=== PATIENT | male | born 1955 ===

== ENCOUNTER 2018-06-13 12:39 | Outpatient (RCR) | payer OTHER ==
[2018-06-29] MEDS ORDERED: NORVASC 10MG10 MG PO (06:19)
[2018-06-29] MEDS ORDERED: ZOCOR 20MG20 MG PO (06:20)
[2018-06-29] MEDS ORDERED: COREG 25MG25 MG/TAB PO (06:20)
[2018-06-29] MEDS ORDERED: LOPID 600M600 MG/TAB PO (06:21)
[2018-06-29] MEDS ORDERED: PRILOSEC 20MG20 MG PO (06:21)
== END 2018-09-11 | disposition home or self-care (01) ==
LOC: WSOH
DX: M62.08 Separation of muscle (nontraumatic), other site (principal); X50.0XXA Overexertion from strenuous movement or load, initial encounter; Y93.H3 Activity, building and construction; Y92.59 Other trade areas as the place of occurrence of the external cause; Y99.0 Civilian activity done for income or pay; Z87.891 Personal history of nicotine dependence; Z79.899 Other long term (current) drug therapy

== ENCOUNTER 2018-06-29 05:55 | Day surgery (SDC) | payer OTHER ==
[~2018-06-29] VITALS: Ht 180.3 cm; Wt 93.2 kg
[2018-06-29] MEDS ORDERED: NORVASC 10MG10 MG PO (06:19)
[2018-06-29] MEDS ORDERED: COREG 25MG25 MG/TAB PO (06:20)
[2018-06-29] MEDS ORDERED: ZOCOR 20MG20 MG PO (06:20)
[2018-06-29] MEDS ORDERED: LOPID 600M600 MG/TAB PO (06:21)
[2018-06-29] MEDS ORDERED: PRILOSEC 20MG20 MG PO (06:21)
[2018-06-29 06:34] VITALS: BP 154/77; PULSE 48; TEMP 97.4
[2018-06-29 07:40] VITALS: BP 128/75; PULSE 47; TEMP 97.8
[2018-06-29 07:55] VITALS: BP 97/65; PULSE 43
[2018-06-29 08:10] VITALS: BP 93/60; PULSE 44
[2018-06-29 08:25] VITALS: BP 95/60; PULSE 44
== END 2018-06-29 08:35 ==
LOC: SDCO 05:55
DX: Z12.11 Encounter for screening for malignant neoplasm of colon (principal); Z86.010 Personal history of colon polyps; Z80.0 Family history of malignant neoplasm of digestive organs; D12.5 Benign neoplasm of sigmoid colon; K57.30 Diverticulosis of large intestine without perforation or abscess without bleeding; K21.9 Gastro-esophageal reflux disease without esophagitis; Z79.82 Long term (current) use of aspirin; Z79.899 Other long term (current) drug therapy; E04.1 Nontoxic single thyroid nodule
CPT/HCPCS: J2250; J3010; J7030

== ENCOUNTER 2018-09-17 10:23 | Inpatient (IN) | payer OTHER ==
[~2018-09-17] VITALS: Ht 180.3 cm; Wt 96.8 kg
[2018-09-17] VITALS (18 sets, daily range): BP systolic 108–153; BP diastolic 45–100; PULSE 40–93; TEMP 97–98.1
[~2018-09-17 10:23] MED LIST: COREG 25MG25 MG/TAB PO; LOPID 600M600 MG/TAB PO; NORVASC 10MG10 MG PO; PRILOSEC 20MG20 MG PO; ZOCOR 20MG20 MG PO
[2018-09-17] MEDS ORDERED: ASPIRIN 81M81 MG/TA2 PO (11:09)
--- NOTE | 2018-09-17 16:10 | NUR ---
Patient arrives back to [facility] drowsy, denies nausea, reports pain in abdomen. Patient given a pillow for his abdomen. Abdominal binder in place. Patient arrives on 4L O2 per nasal cannula. Patient monitor applied, vitals stable (bradycardia). Patient's spouse at bedside.
--- NOTE | 2018-09-17 16:25 | NUR ---
Confirmed dosing recommendation for Toradol and PRN pain medications with Pharmacist at this time.
--- NOTE | 2018-09-17 16:30 | NUR ---
Called IN HOUSE CRA at this time to go over patient's status. IN HOUSE CRA advised to give a dose of Fentanyl and ordered a DuoNeb breathing treatment.
--- NOTE | 2018-09-17 16:40 | NUR ---
Respiratory therapy contacated at this time to come administer a breathing treatment on patient.
--- NOTE | 2018-09-17 16:55 | NUR ---
Patient resting much more comfortably at this time. Vitals stable (marito), and patient reports pain is much more tolerable and is able to rest now.
--- NOTE | 2018-09-17 17:05 | NUR ---
Patient given toast at this time. Reports pain is much better now.
--- NOTE | 2018-09-17 17:40 | NUR ---
Respiratory therapy into see patient at this time.
--- NOTE | 2018-09-17 18:05 | NUR ---
Oxygen therapy turned off at this time.
--- NOTE | 2018-09-17 18:15 | NUR ---
Abdominal binder opened at this time to inspect incision. Left lower incision did have some minimal bright red colored drainage noted, it appears to be stopped at this time. Abdomial binder re-applied. Patient reports extreme pain when binder was losened to assess incision sites.
--- NOTE | 2018-09-17 18:20 | NUR ---
Oxygen therapy turned back on at this time. Patient was able to maintain oxygen levels around 90-91% for some time, but then dropped down to 87% and was unable to rise after dropping.
--- NOTE | 2018-09-17 18:25 | NUR ---
Dr Guillen contacted and updated on patient condition at this time. Dr Guillen would like to admit patient for observation.
--- NOTE | 2018-09-17 18:27 | NUR ---
Attempted to call [employer] at this time, but no answer.
--- NOTE | 2018-09-17 18:35 | NUR ---
farm management supervisor contact at this time.
--- NOTE | 2018-09-17 18:45 | NUR ---
Atempted to call patient report at this time, nursing staff is in shift change and could not take report.
--- NOTE | 2018-09-17 19:00 | NUR ---
Patient resting comfortably in bed at this time. Spouse at bedside.
--- NOTE | 2018-09-17 19:20 | NUR ---
Report called to JAILYN Vicente at this time.
--- NOTE | 2018-09-17 19:25 | NUR ---
Patient transfered to Surgical 349 via cart with IV and O2 intact and without any complications per JAILYN Alex. Patient report and care given to JAILYN Vicente. Patient's spouse at bedside.
[2018-09-18] VITALS (8 sets, daily range): BP systolic 122–148; BP diastolic 58–98; PULSE 43–69; TEMP 97.3–98
--- NOTE | 2018-09-18 05:00 | NUR ---
Up to bathroom at this time. Kdpsht-ishcobozir-krlmeee difficulty. Attempted to wean off oxygen-O2 dropping down to 88% on room air-maintaining 90% on 0.5L of O2. Sat on side of bed for approx 30 minuites. He did get lightheaded but had received pain medications 30 minutes prior. Will continue to monitor.
--- NOTE | 2018-09-18 09:12 | NUR ---
VICKIE bella met with the patient and patient's (Argenis) to discuss discharge plan. The patient lives in [place] with his . The patient does not use any assistance devices and reports independence with ADLs. The patient's PCP is Dr. Dev Driver and he rece[facility] his [facility] from [facility]. The patient reports no difficulties obtaining his medications. The patient does not have DPOA-HC completed but was interested in obtaining the form to look over and complete later. VICKIE bella provided and explained the form. No identfied needs. The patient is to discharge today, 09/18, back home with his (Argenis). No additional needs at this time.
[2018-09-18 16:36] LABS: BASO % 0.2 % (0.0-2.0); EOS % 0.1 % (0-4.0); GRAN # 12.8 (1.4-6.5); GRAN % 80.6 % (42.2-75.2); HEMATOCRIT 49.1 % (42.0-52.0); HEMOGLOBIN 16.8 g/dl (13.5-18.0); LYMPH # 1.8 (1.2-3.4); LYMPH % 11.3 % (20.0-51.0); MEAN CELL VOLUME 88 fl (80.0-100.0); MEAN CORPUSCULAR HEMOGLOBIN 30 pg (27.0-31.0); MEAN CORPUSCULAR HGB CONC 34 g/dl (33.0-37.0); MEAN PLATELET VOLUME 10.6 fl (7.4-10.4); MONO # 1.2 (0.1-0.6); MONO % 7.4 % (1.7-9.3); PLATELET COUNT 305 K/mm3 (130-400); RED BLOOD COUNT 5.57 M/mm3 (4.20-5.60); REDCELL DISTRIBUTION WIDTH-CV 12.8 % (11.5-14.5)
[2018-09-18 16:46] LABS: ALBUMIN 4.9 gm/dL (3.5-5.0); BILIRUBIN,TOTAL 0.6 mg/dL (0.0-1.0); CALCIUM 10.6 mg/dL (8.4-10.2); CREATININE, serum 0.93 mg/dL (0.66-1.25); POTASSIUM 4.6 mmol/L (3.4-5.0); TOTAL PROTEIN 8.1 gm/dL (6.4-8.2)
--- NOTE | 2018-09-18 17:30 | NUR ---
CXR NEGATIVE. AT BEDSIDE CONSULTING WITH PATIENT AND . PATIENT DENIES ANY SOB OR CHEST PAIN. 02 @ 2L PER NC WITH SATS IN LOW 90'S. PATIENT USING IS FREQUENTLY. AFTER PHYSICIAN LEFT PATIENT WANTING TO GO FOR A WALK. PATIENT AMBULATED AROUND NURSES STATION WITH PORTIBLE OXYGEN. PATIENT DENIED C/O SOB BUT DID APPEAR SLIGHTLY FATIGUED AFTER WALK. PATIENT SITTING UP AT BEDSIDE. IN ROOM. CALL LIGHT IN REACH. NO OTHER NEEDS.
--- NOTE | 2018-09-18 21:00 | NUR ---
ASSESSMENT COMPLETE. PLAN OF CARE DISCUSSED. DENIES ANY QUESTIONS OR CONCERNS. UP TO AMBULATE ON ENTIRE SURGICAL FLOOR WITH OXYGEN AT 3L. TOLERATED WELL BUT DID FEEL SHORT OF BREATH WHEN ARRIVED TO ROOM. O2 SAT 91%. C/O INCREASED PAIN AFTER AMMBULATION-NORCO 1 TAB GIVEN. WILL MONITOR EFFECTIVENESS. REFUSING PM LIPITOR. STATES SHE BELIEVES HE HAD A REACTION TO THAT MEDICATION SEVERAL YEARS AGO AND WANTS TO BE SURE PRIOR TO TAKING. STATES HE USUALLY TAKES ZOCOR. DENIES ANY OTHER QUESTIONS OR CONCERNS AT THIS TIME. INSTURTED TO CALL FOR NEEDS. WILL CONTINUE TO MONITOR.
--- NOTE | 2018-09-18 21:51 | NUR ---
PT NOT AVAILABLE AT THIS TIME.
--- NOTE | 2018-09-18 23:30 | NUR ---
RT TO NURSES STATION AFTER ADMINISTERING ORDERED NEBULIZER. INCREASED O2 TO 4L/M VIA NC TO MAINTAIN LEVEL >90%. WILL CONTINUE TO MONITOR.
--- NOTE | 2018-09-18 23:36 | NUR ---
INCREASE O2 TO 4LPM NC DUE TO LOW SPO2 OF <90%.
--- NOTE | 2018-09-19 00:40 | NUR ---
RESTING WITH EYES CLOSED. AROUSES WITH MINIMAL STIMULI. STATES PAIN IS NOW 4/10. O2 SAT CHECKED AND REGISTERING 96% ON 7L/NC. WEANED BACK DOWN BASED ON O2 SAT .90%. O2 AT 4.5L/M VIA NC. MAINTAINED AT THIS LEVEL. ENCOURAGED TO CALL FOR QUESTIONS OR CONCERNS. WILL MONITOR.
[2018-09-19 04:14] VITALS: BP 136/61; PULSE 62; TEMP 98
--- NOTE | 2018-09-19 05:30 | NUR ---
TO ROOM FOR PAIN MEDICATION REASSESSMENT. RESTING WITH EYES CLOSED. NO S/S OF PAIN NOTED. AT BEDSIDE. HUMIDIFIED O2@4L/M. LAST PULSE OX 92%. UNABLE TO WEAN WITHOUT DROPPING BELOW 90%. AMBULATED THIS SHIFT WITH PORTABLE OXYGEN. PT STATED LESS THAN ON DAY SHIFT. HAS USED IS AT REGULAR ORDERED INTERVALS. CBC THIS AM-WILL CONTINUE TO LOOK FOR RESULTS. WILL MONITOR.
[2018-09-19 07:09] LABS: BASO # 0.1 (0.0-0.2); BASO % 0.6 % (0.0-2.0); EOS # 0.1 (0.0-0.7); GRAN % 71.3 % (42.2-75.2); HEMATOCRIT 45.9 % (42.0-52.0); HEMOGLOBIN 15.4 g/dl (13.5-18.0); LYMPH # 2.6 (1.2-3.4); LYMPH % 20.1 % (20.0-51.0); MEAN CELL VOLUME 89 fl (80.0-100.0); MEAN CORPUSCULAR HEMOGLOBIN 30 pg (27.0-31.0); MEAN CORPUSCULAR HGB CONC 34 g/dl (33.0-37.0); MEAN PLATELET VOLUME 10.7 fl (7.4-10.4); MONO # 0.8 (0.1-0.6); MONO % 6.4 % (1.7-9.3); PLATELET COUNT 257 K/mm3 (130-400); RED BLOOD COUNT 5.15 M/mm3 (4.20-5.60)
[2018-09-19 09:00] VITALS: BP 126/48; PULSE 44; TEMP 98.2
--- NOTE | 2018-09-19 10:30 | NUR ---
Patient alert and oriented, answers questions appropriately. See assessment. Abdomen round, firm. Bowel sounds hypoactive x4 quads. No flatus. States no bowel movement for a few days and feels he needs to have one. Lap sites to abdomen with edges well approximated, no redness or drainage noted. Encouraged ambulation and to sit up in chair. No other c/o at this time.
--- NOTE | 2018-09-19 11:24 | NUR ---
Patient requests pain medication at this time. Pain 10/17. Request two tabs of [place]. States "I'm not having a lot of pain but prepping myself to get up."
[2018-09-19 11:58] VITALS: BP 148/67; PULSE 52; TEMP 98
[2018-09-19 17:20] VITALS: BP 148/70; PULSE 47; TEMP 97.9
[2018-09-19 19:31] VITALS: BP 144/57; PULSE 52; TEMP 98.8
--- NOTE | 2018-09-19 22:00 | NUR ---
ASSESSMENT COMPLETE SEE FLOW SHEET. A&O X3. VS WNL. O2 AT 4.5L PER NC. DENIES SHORTNESS OF BREATH. PLAN OF CARE DISCUSSED. HAS AMBULATED X2 ALREADY THIS SHIFT. USING IS REGULARLY. NO BM YET BUT BOWEL SOUND MORE ACTIVE TODAY COMPARED TO YESTERDAY. STATES PASSING FLATUS WELL. BED IN LOW POSITION AND CALL LIGHT WITHIN REACH. ENCOURAGED TO CALL FOR QUESTIONS OR CONCERNS VERBALIZES UNDERSTANDING. WILL MONITOR.
[2018-09-19 23:31] VITALS: BP 145/64; BP 145/90; PULSE 51; PULSE 71; TEMP 97.8; TEMP 98.5
--- NOTE | 2018-09-19 23:40 | NUR ---
TO ROOM AT THIS TIME RELATED TO CALL FOR PAIN MEDICATIONS. RATING PAIN 7/10-SHARP IN ABDOMEN. VITALS BEING COMPLETED AT THIS TIME BY HORSE SHOW MANAGER-O2 SAT 88% ON 4.5L VIA NC. APPEARS TO BE HOLDING BREATHE AND SHALLOW BREATHING. NORCO TWO TABS ADMINISTERED PER DR ORDER-OXYGEN TITRATED TO MAINTAIN SATURATION OF 92%-NOW ON 7L/M VIA NC. ENCOURAGED TO DEEP BREATHE AND NOT TO HOLD BREATH AND IS DOING BETTER. WILL MONITOR 02 SAT AND PAIN LEVEL AND DECREASE O2 BASED ON SATURATION. INSTRUCTED TO CALL FOR QUESTIONS OR CONCERNS. VERBALIZES UNDERSTANDING. WILL MONITOR.
--- NOTE | 2018-09-20 04:20 | NUR ---
Patient ambulated around the surgical and medical floor at this time with standby assist with staff and portable oxygen @ 4.5 liters, tolerated ambulating well with no c/o SOB. Patient reporting that he has been passing some gas but still has not been able to have any bowel movements.
[2018-09-20 04:41] VITALS: BP 139/65; PULSE 50; TEMP 98.3
[2018-09-20 06:10] LABS: BASO # 0.1 (0.0-0.2); BASO % 0.8 % (0.0-2.0); EOS # 0.3 (0.0-0.7); EOS % 3.2 % (0-4.0); GRAN # 7.3 (1.4-6.5); GRAN % 70.9 % (42.2-75.2); HEMATOCRIT 42.3 % (42.0-52.0); HEMOGLOBIN 14.3 g/dl (13.5-18.0); LYMPH # 1.7 (1.2-3.4); LYMPH % 16.4 % (20.0-51.0); MEAN CELL VOLUME 89 fl (80.0-100.0); MEAN CORPUSCULAR HEMOGLOBIN 30 pg (27.0-31.0); MEAN CORPUSCULAR HGB CONC 34 g/dl (33.0-37.0); MEAN PLATELET VOLUME 10.7 fl (7.4-10.4); MONO # 0.9 (0.1-0.6); MONO % 8.3 % (1.7-9.3); PLATELET COUNT 219 K/mm3 (130-400); RED BLOOD COUNT 4.74 M/mm3 (4.20-5.60)
--- NOTE | 2018-09-20 06:47 | NUR ---
AMBULATED THIS SHIFT X3. VS STABLE-O2 SAT 92% ON 4.5L/M VIA NC. PAIN CURRENTLY 10/17. PASSING GAS MORE REGULARLY. USING IS. AT BEDSIDE.
--- NOTE | 2018-09-20 08:59 | NUR ---
Initial visit attempt; Patient indisposed, Senior Administrative Support spoke with his who said she would let Kg know Senior Administrative Support is available and she thanked Senior Administrative Support for looking in on them.
[2018-09-20 09:28] VITALS: BP 137/66; PULSE 52; TEMP 97.9
[2018-09-20 11:22] VITALS: BP 137/54; PULSE 50; TEMP 97.7
[2018-09-20 16:17] VITALS: BP 148/63; PULSE 52; TEMP 97.2
--- NOTE | 2018-09-20 18:00 | NUR ---
Patient did well today. He walked in the hallway several times. He has been using his incentive spirometer. He has not had a bowel movement yet. He did get a suppository this afternoon. He is passing flatus. His has been at bedside. No other changes at this time. Call light within reach.
[2018-09-20 19:36] VITALS: BP 138/67; PULSE 52; TEMP 98.2
--- NOTE | 2018-09-20 21:41 | NUR ---
Assessment completed. Patient is A&O x 4. VSS, currently on 4.5 liters of supplemental O2 via nasal cannula. Abdominal pain controlled at this time with prn [place]. Abdominal lap sites x 4 with bandaids are CDI. Abdominal binder is off at this time. Tolerating diet with no c/o nausea. Bowel sounds present. Patient did have a very large green loose bowel movement. Reports feeling better after BM. Voiding with no difficulities. INT to right wrist. Patient did ambulate with staff in the hallway with portable oxygen, he ambulated around the surgical and medical floor twice and tolerated well. Patient demonstrated how to use the IS properly once back to room after ambulating. Denies any concerns or needs at this time. is at bedside.
[2018-09-20 23:18] VITALS: BP 130/63; PULSE 51; TEMP 98.4
--- NOTE | 2018-09-20 23:48 | NUR ---
Patient is resting in bed with eyes closed and even respirations. Oxygen at this time is at 4L via NC. remains at bedside.
[2018-09-21] VITALS (7 sets, daily range): BP systolic 102–161; BP diastolic 54–66; PULSE 48–91; TEMP 97.8–100
--- NOTE | 2018-09-21 06:02 | NUR ---
Patient has rested well through the night. VSS, on 4 L of supplemental O2 via NC at this time. Abdominal pain controlled with prn [place]. Abdominal lap sites x 4 with bandaids remain CDI. Continues to pass gas. Denies any concerns or needs. remains at bedside.
[2018-09-21 06:33] LABS: BASO % 0.6 % (0.0-2.0); EOS # 0.5 (0.0-0.7); EOS % 7.4 % (0-4.0); GRAN % 61.2 % (42.2-75.2); HEMATOCRIT 41.3 % (42.0-52.0); LYMPH # 1.4 (1.2-3.4); MEAN CELL VOLUME 89 fl (80.0-100.0); MEAN CORPUSCULAR HEMOGLOBIN 30 pg (27.0-31.0); MEAN CORPUSCULAR HGB CONC 34 g/dl (33.0-37.0); MEAN PLATELET VOLUME 10.7 fl (7.4-10.4); MONO # 0.5 (0.1-0.6); MONO % 8.3 % (1.7-9.3); PLATELET COUNT 225 K/mm3 (130-400); RED BLOOD COUNT 4.63 M/mm3 (4.20-5.60)
--- NOTE | 2018-09-21 08:00 | NUR ---
PATIENT RESTING IN BED. PATIENT IS A&O. BRADYCARDIA NOTED, OTHERWISE VSS. BOWEL SOUNDS HYPOACTIVE ALL FOUR QUADRANTS. ABDOMEN IS FIRM AND DISTENDED. PATIENT PASSING FLATUS. SHALLOW BREATHING NOTED. PATIENT DENIES SHORTNESS OF BREATH OF PRODUCTIVE COUGH. UPPER LOBES CLEAR UPSON AUSCULTATION BILATERALLY. FINE CRACKLES AUSCULTATED OVER BASES BILATERALLY. ABDOMINAL LAP SITES X4 NATIONAL OPELINT ANALYST WITH EDGES WELL APPROXIMATED. ABD BINDER IN PLACE. POSITIVE PEDAL PULSES EQUAL BILATERALLY. SCD'S TO BLE. RIGHT HAND TO INT. FAMILY PRESENT AT BEDSIDE. CALL LIGHT WITHIN REACH. PATIENT DENIES ANY OTHER NEEDS AT THIS TIME.
--- NOTE | 2018-09-21 08:47 | NUR ---
DR. GUILLAUME WITH PULMONOLOGY CALLED AND NOTIFIED OF HYPOXIA CONSULT. STAT ABG ORDER GIVEN PORB FROM TO THIS NURSE. RESPIRATORY CALLED AND NOTIFIED TO DRAW ABG LAB.
[2018-09-21 09:06] LABS: ARTERIAL BLD GAS O2 SATURATION 91.6 % (92-100); ARTERIAL BLD GAS TCO2 CT 25.4; ARTERIAL BLOOD GAS BASE EXCESS 0.8 (-2-2); ARTERIAL BLOOD GAS HCO3 24.3 meq/L (22-26); ARTERIAL BLOOD GAS PCO2 35.9 mmHg (35-45); ARTERIAL BLOOD GAS pH 7.45 (7.35-7.45)
--- NOTE | 2018-09-21 10:17 | NUR ---
Initial visit; Patient appears to feel somewhat better and thanked Director Of Oncology for looking in on him and keeping him in Director Of Oncology's prayers.
--- NOTE | 2018-09-21 15:46 | NUR ---
SW talked with nurse who reports patient is independent in room and walking around well. She anticipates he will be able to return home at discharge. WIll continue to follow.
--- NOTE | 2018-09-21 19:13 | NUR ---
PATIENT AMBULATED THROUGHOUT HALLS WITH FAMILY NUMEROUS TIMES THROUGHOUT THE DAY. PATIENT DENIES NEEDS AT THIS TIME. REPORT GIVEN TO JAILYN GASCA.
--- NOTE | 2018-09-21 20:45 | NUR ---
Pt. laying in bed with at bedside. Pt. is A&OX3, assessment complete. INT to rt. wrist patent. Four abd. lapsites noted, sites are CDI with steristrips. Pt. reports pain at a 4 on pain scale at this time. Gave pain meds per orders. Pt. continues to be on O2, 4L NC. Pt. denies further needs, call light within reach.
[2018-09-22 03:54] VITALS: BP 134/69; PULSE 52; TEMP 98.2
--- NOTE | 2018-09-22 06:09 | NUR ---
Pt. slept well through the night. Pt. remains A&OX3. INT to rt. wrist patent. Four abd. lap sites remain CDI. Pt. denies pain or other needs at this time. Call light within reach.
[2018-09-22 07:30] LABS: BASO # 0.1 (0.0-0.2); BASO % 0.9 % (0.0-2.0); EOS # 0.6 (0.0-0.7); GRAN # 3.3 (1.4-6.5); GRAN % 51.9 % (42.2-75.2); HEMATOCRIT 42.6 % (42.0-52.0); HEMOGLOBIN 14.6 g/dl (13.5-18.0); LYMPH # 1.8 (1.2-3.4); LYMPH % 28.8 % (20.0-51.0); MEAN CELL VOLUME 89 fl (80.0-100.0); MEAN CORPUSCULAR HEMOGLOBIN 31 pg (27.0-31.0); MEAN CORPUSCULAR HGB CONC 34 g/dl (33.0-37.0); MEAN PLATELET VOLUME 10.8 fl (7.4-10.4); MONO # 0.6 (0.1-0.6); MONO % 9.2 % (1.7-9.3); PLATELET COUNT 226 K/mm3 (130-400); RED BLOOD COUNT 4.79 M/mm3 (4.20-5.60); REDCELL DISTRIBUTION WIDTH-CV 12.9 % (11.5-14.5)
[2018-09-22 07:39] LABS: CALCIUM 9.8 mg/dL (8.4-10.2); CREATININE, serum 0.89 mg/dL (0.66-1.25); POTASSIUM 4.3 mmol/L (3.4-5.0)
--- NOTE | 2018-09-22 08:00 | NUR ---
PATIENT IS DROWSY THIS MORNING AND RESTING IN BED WITH AT THE BEDSIDE. PATIENT IS A&O. BRADYCARDIA NOTED, OTHERWISE VSS. SHALLOW BREATHING NOTED. UPPER LUNG LOBES CLEAR UPON AUSCULATATION. BASES DIMINISHED BILATERALLY. PATIENT DENIES PRODUCTIVE COUGH AND STATES THAT HE HAS SOME SHORTNESS OF BREATH WITH AMBULATION. ABDOMEN DISTENDED AND SLIGHTLY FIRM. BOWEL SOUNDS ACTIVE ALL FOUR QUADRANTS. PATIENT TOLERATING DIET WITHOUT ANY COMPLAINTS OF N/V. ABDOMINAL LAP SITES X4 ANA WITH EDGES WELL APPROXIMATED. ABD BINDER IN PLACE. RIGHT WRIST TO INT. CALL LIGHT WITHIN REACH. PATIENT DENIES ANY NEEDS AT THIS TIME.
[2018-09-22 08:51] VITALS: BP 145/60; PULSE 43; TEMP 97.6
[2018-09-22 12:18] VITALS: BP 119/61; PULSE 73; TEMP 98.3
[2018-09-22 17:08] VITALS: BP 137/61; PULSE 48; TEMP 98.6
--- NOTE | 2018-09-22 19:43 | NUR ---
PATIENT HAS AMBULATED THROUGHOUT THE HALLS WITH FAMILY NUMEROUS TIMES TODAY. REPORT GIVEN TO JAILYN GASCA.
[2018-09-22 19:55] VITALS: BP 131/55; PULSE 49; TEMP 98.3
--- NOTE | 2018-09-22 21:20 | NUR ---
Pt. sitting up at bedside. Pt. is A&OX3, assessment complete. INT to rt. wrist patent. Four abd. lap sites noted ANA, edges well approximated. Pt. with O2 at 3.5 L, NC. Pt. reports pain at a 5 on pain scale, will give pain meds per orders. Pt. denies further needs, call light within reach.
[2018-09-22 23:46] VITALS: BP 123/61; PULSE 48; TEMP 97.9
[2018-09-23 03:39] VITALS: BP 141/62; PULSE 48; TEMP 98.2
--- NOTE | 2018-09-23 08:00 | NUR ---
PATIENT UP TO THE CHAIR THIS MORNING WITH HIS PRESENT AT THE BEDSIDE. PATIENT IS A&O. BRADYCARDIA NOTED, OTHERWISE VSS. PATIENT STATES, 'I FEEL SHORT OF BREATH WITH WALKING.' PATIENT DENIES SHORTNESS OF BREATH AT REST OR A PRODUCTIVE COUGH. BOWEL SOUNDS ACTIVE ALL FOUR QUADRANTS. PATIENT TOLERATING DIET WITHOUT ANY COMPLAINTS OF N/V. ABDOMEN ROUNDED AND SLIGHTLY FIRM. ABDOMINAL LAP SITES X4 BOOTH CASHIER WITH EDGES WELL APPROXIMATED. PATIENT WEARING ABD BINDER WHEN OUT OF BED. RIGHT WRIST TO INT. CALL LIGHT WITHIN REACH.
[2018-09-23 08:33] VITALS: BP 144/65; PULSE 41; TEMP 97.4
[2018-09-23 11:49] LABS: ARTERIAL BLD GAS O2 SATURATION 92.4 % (92-100); ARTERIAL BLOOD GAS BASE EXCESS 0.3 (-2-2); ARTERIAL BLOOD GAS HCO3 23.9 meq/L (22-26); ARTERIAL BLOOD GAS PCO2 35.9 mmHg (35-45); ARTERIAL BLOOD GAS pH 7.44 (7.35-7.45)
[2018-09-23 12:01] VITALS: BP 130/59; PULSE 45; TEMP 97.8
[2018-09-23 16:36] VITALS: BP 121/58; PULSE 49; TEMP 97.3
--- NOTE | 2018-09-23 18:08 | NUR ---
PATIENT REPORTS THAT HE HAS YET TO HAVE A BM. PATIENT REQUESTED TO TRY A BUTTER BOMB; A COCKTAIL OF APPLE AND PRUNE JUICE HEATED WITH BUTTER. PATIENT STATES THAT HE WILL TRY A SUPPOSITORY IF NO SUCESS WITH THE BUTTERBOMB. PATIENT STATES THAT HE HAD A LATE LUNCH AND REFUSED DINNER. PATIENT AMBULATED IN THE HALLS WITH THREE TIMES THROUGHOUT DAY SHIFT. PATIENT DENIES ANY NEEDS AT THIS TIME.
--- NOTE | 2018-09-23 19:47 | NUR ---
REPORT GIVEN TO JAILYN NORWOOD.
[2018-09-23 20:00] VITALS: BP 103/52; PULSE 70; TEMP 98.2
--- NOTE | 2018-09-23 21:00 | NUR ---
Initial shift assessment done-- states still no bowel movement today- would like the suppositiory- will give a dulcolax as ordered. Denies SOB, o2 at 3.5L/nc. States abd pain 11/16-- will see if suppository help elliviate some of his abd pain- states feels pressure. Up walking-
[2018-09-24] VITALS (7 sets, daily range): BP systolic 126–139; BP diastolic 55–68; PULSE 45–58; TEMP 97.4–99.3
--- NOTE | 2018-09-24 04:20 | NUR ---
States having some abd pain 4-5/10, will give [place] x1 tab as ordered, pt states has been resting well, on o2 at 3.5L/nc. Pt states had bowel movemnet afeter suppository given last night-feeling better
--- NOTE | 2018-09-24 07:17 | NUR ---
Pt AAOx4 ambulating in mahan on O2 with spouse assisting with tank. Both anxious about discharging today d/t continued oxygen requirements.
[2018-09-24 09:42] LABS: BASO # 0.1 (0.0-0.2); BASO % 1.3 % (0.0-2.0); EOS # 0.4 (0.0-0.7); EOS % 6.1 % (0-4.0); GRAN # 4.1 (1.4-6.5); GRAN % 56.3 % (42.2-75.2); HEMATOCRIT 43.1 % (42.0-52.0); HEMOGLOBIN 14.5 g/dl (13.5-18.0); LYMPH # 1.9 (1.2-3.4); LYMPH % 26.5 % (20.0-51.0); MEAN CELL VOLUME 89 fl (80.0-100.0); MEAN CORPUSCULAR HEMOGLOBIN 30 pg (27.0-31.0); MEAN CORPUSCULAR HGB CONC 34 g/dl (33.0-37.0); MEAN PLATELET VOLUME 10.2 fl (7.4-10.4); MONO # 0.7 (0.1-0.6); MONO % 9.5 % (1.7-9.3); PLATELET COUNT 254 K/mm3 (130-400); RED BLOOD COUNT 4.84 M/mm3 (4.20-5.60); REDCELL DISTRIBUTION WIDTH-CV 12.8 % (11.5-14.5)
[2018-09-24 10:00] LABS: CALCIUM 9.6 mg/dL (8.4-10.2); CREATININE, serum 0.89 mg/dL (0.66-1.25); MAGNESIUM 2.2 mg/dL (1.6-2.3); PHOSPHOROUS 3.7 mg/dL (2.5-4.5); POTASSIUM 4.2 mmol/L (3.4-5.0)
--- NOTE | 2018-09-24 13:53 | NUR ---
SW spoke with midlevel who reports patient is not dc today as his o2 needs are still too high. Patient is still ambulating independently. SW will continue to follow for dc needs.
--- NOTE | 2018-09-25 00:15 | NUR ---
SET UP BIPAP AT 2200. FITTED PT TO MASK AND ANSWERED ALL QUESTIONS. PT TOLERATED PRESSURES AND FI02 WELL; HOWEVER, MASK WAS NOT ELOISE WELL AND PT FELT SUFFOCATED AND HE WASN'T ABLE TO WEAR THE BIPAP WITHOUT HOLDING THE MASK HIMSELF. PT IS IN NO DISTRESS ON 3 LPM NC. PT WILL USE BIPAP MASK WITH TREATMENT AT 0200 FOR MUCOMYST AND DUONEB. PT STATES "HE DOESN'T FEEL IN CONTROL AND WOULD RATHER HOLD THE MASK INSTEAD OF CLIPPING IT ON" PT DID TRY THE MASK FOR ABOUT 5 MINUTES BUT BEGAN TO FEEL TRAPPED AND HAD TO TAKE IT OFF. PT WILLING TO TRY AGAIN WILL CONTINUE TO MONITOR AND ASSESS.
[2018-09-25 03:22] VITALS: BP 126/57; PULSE 47; TEMP 98
--- NOTE | 2018-09-25 05:15 | NUR ---
Pt. slept well through the night. Pt. attempted to wear the bipap but was unsuccessful. Pt. remains A&OX3. Abd. lap sites unchanged. Pt. reports pain at a 1 on pain scale. Pt. denies further needs, call light within reach.
--- NOTE | 2018-09-25 05:45 | NUR ---
Pt. called and reported " I changed my mind, I think I would take a pain pill". Pt. given 1 norco.
--- NOTE | 2018-09-25 06:54 | NUR ---
Report received from JAILYN Ervin. Patient resting in bed with eyes closed. Reassessed pain with FLACC scale due to patient sleeping.
[2018-09-25 07:59] VITALS: BP 125/59; PULSE 50; TEMP 98.1
--- NOTE | 2018-09-25 09:00 | NUR ---
Patient resting in bed upon assessment. Noted to walk the halls with this morning. Oxygen at 93% on 2L. Attempting to decrease oxygen usage. Patient states pain 2/10 on numeric scale to abdomen, but states, "I'm doing alright." Patient states he is going to shower, eat breakfast, and go for another walk. at bedside.
[2018-09-25] MEDS ORDERED: NORCO 325 MG-7.1 TAB PO (10:37)
[2018-09-25] MEDS ORDERED: DULCOLAX S10 MG/SUPP RC (10:37)
[2018-09-25 11:14] VITALS: BP 130/60; PULSE 49; TEMP 98.4
--- NOTE | 2018-09-25 11:34 | NUR ---
PT WALKED APPROX. 300 FEET AT THIS TIME. AROUND BOTH SURGICAL AND MEDICAL UNITS. PT'S O2 REMAINED BETWEEN 90-93% DURING THIS TIME. NO OXYGEN REQUIRED.
--- NOTE | 2018-09-25 13:16 | NUR ---
Patient dc home today. He passed his exercise ox and does not require home oxygen. No other discharge needs identified.
== END 2018-09-25 12:55 | disposition home or self-care (01) | DRG 982 ==
LOC: SDCO 10:23 → SURG 18:30 → SDCO 09-19 08:38 → SURG 09-19 08:40
PROVIDERS: Internal Medicine Critical Care Medicine; Internal Medicine Pulmonary Disease; Nurse Practitioner Family; Physician Assistant; ADMIT Surgery
PROC: 8E0W4CZ Robotic Assisted Procedure of Trunk Region, Percutaneous Endoscopic Approach (ICD-10-PCS; 2018-09-17)
PROC: 0WUF4JZ Supplement Abdominal Wall with Synthetic Substitute, Percutaneous Endoscopic Approach (ICD-10-PCS; principal; 2018-09-17 12:30)
DX: J96.01 Acute respiratory failure with hypoxia (principal); J98.11 Atelectasis; K56.7 Ileus, unspecified; K42.9 Umbilical hernia without obstruction or gangrene; I10 Essential (primary) hypertension; M62.08 Separation of muscle (nontraumatic), other site; K21.9 Gastro-esophageal reflux disease without esophagitis; Z87.891 Personal history of nicotine dependence; R00.1 Bradycardia, unspecified; T46.6X5S Adverse effect of antihyperlipidemic and antiarteriosclerotic drugs, sequela
CPT/HCPCS: OP; 99231-AI; 99232-AI; 99233-AI; A9284; C1781; J0690; J1100; J1170; J1885; J2405; J2704; J2710; J3010; J7120; Q9967

== ENCOUNTER 2019-11-24 08:09 | Emergency (ER) | payer OTHER ==
[~2019-11-24] VITALS: Ht 180.3 cm; Wt 94.1 kg
[~2019-11-24 08:09] MED LIST changes: +ASPIRIN 81M81 MG/TA2 PO; +DULCOLAX S10 MG/SUPP RC; +NORCO 325 MG-7.1 TAB PO
[2019-11-24 08:12] VITALS: TEMP 96.1
[2019-11-24 08:36] LABS: BASO # 0.1 (0.0-0.2); BASO % 1.3 % (0.0-2.0); EOS # 0.5 (0.0-0.7); EOS % 5.9 % (0-4.0); GRAN # 4.1 (1.4-6.5); GRAN % 46.8 % (42.2-75.2); HEMOGLOBIN 15.3 g/dl (13.5-18.0); LYMPH # 3.2 (1.2-3.4); LYMPH % 36.4 % (20.0-51.0); MEAN CELL VOLUME 90 fl (80.0-100.0); MEAN CORPUSCULAR HEMOGLOBIN 31 pg (27.0-31.0); MEAN CORPUSCULAR HGB CONC 34 g/dl (33.0-37.0); MEAN PLATELET VOLUME 10.5 fl (7.4-10.4); MONO # 0.8 (0.1-0.6); MONO % 9.3 % (1.7-9.3); PLATELET COUNT 330 K/mm3 (130-400); RED BLOOD COUNT 4.99 M/mm3 (4.20-5.60); REDCELL DISTRIBUTION WIDTH-CV 12.7 % (11.5-14.5)
[2019-11-24 08:47] LABS: ALBUMIN 4.6 gm/dL (3.5-5.0); BILIRUBIN,TOTAL 0.7 mg/dL (0.0-1.0); CALCIUM 10.6 mg/dL (8.4-10.2); CREATININE, serum 1.09 (0.66-1.25); MAGNESIUM 2.3 mg/dL (1.6-2.3); TOTAL PROTEIN 7.4 gm/dL (6.4-8.2)
[2019-11-24 08:59] LABS: TROPONIN-I 0.031 ng/mL (0.000-0.035)
[2019-11-24 09:20] VITALS: BP 117/76; PULSE 62
[2019-11-24 10:14] LABS: INR 1.1 (0.8-3.0); PROTHROMBIN TIME 11.9 SECONDS (9.7-12.8)
[2019-11-24 10:16] LABS: PARTIAL THROMBOPLASTIN TIME 37.9 SECONDS (26.0-37.0)
== END 2019-11-24 09:29 | disposition short-term general hospital (02) ==
LOC: COL.ER 08:09
PROVIDERS: Emergency Medicine
DX: I21.29 ST elevation (STEMI) myocardial infarction involving other sites (principal); I10 Essential (primary) hypertension; E78.5 Hyperlipidemia, unspecified; Z79.82 Long term (current) use of aspirin; E78.00 Pure hypercholesterolemia, unspecified
CPT/HCPCS: J0461; J1644; J2405; J3010; J3101; J7030; Q9967

== ENCOUNTER 2019-12-16 15:30 | Emergency (ER) | payer OTHER ==
[~2019-12-16] VITALS: Ht 180.3 cm; Wt 90.5 kg
[2019-12-16 15:37] VITALS: TEMP 97.7
[2019-12-16 15:55] LABS: BASO # 0.1 (0.0-0.2); BASO % 0.8 % (0.0-2.0); EOS # 0.3 (0.0-0.7); EOS % 3.4 % (0-4.0); GRAN # 5.8 (1.4-6.5); GRAN % 62.8 % (42.2-75.2); HEMATOCRIT 43.7 % (42.0-52.0); HEMOGLOBIN 15.1 g/dl (13.5-18.0); LYMPH # 2.3 (1.2-3.4); LYMPH % 24.7 % (20.0-51.0); MEAN CELL VOLUME 89 fl (80.0-100.0); MEAN CORPUSCULAR HEMOGLOBIN 31 pg (27.0-31.0); MEAN CORPUSCULAR HGB CONC 35 g/dl (33.0-37.0); MONO # 0.7 (0.1-0.6); PLATELET COUNT 313 K/mm3 (130-400); RED BLOOD COUNT 4.94 M/mm3 (4.20-5.60); REDCELL DISTRIBUTION WIDTH-CV 12.4 % (11.5-14.5)
[2019-12-16 16:08] LABS: ALANINE AMINOTRANSFERASE 23 U/L (4-49); ALBUMIN 4.7 gm/dL (3.5-5.0); ALKALINE PHOSPHATASE 73 U/L (50-136); ANION GAP 10 mmol/L (7-16); AST,SGOT 26 U/L (15-37); BILIRUBIN,TOTAL 0.8 mg/dL (0.0-1.0); BLOOD UREA NITROGEN 18 mg/dL (9-20); CALCIUM 10.5 mg/dL (8.4-10.2); CARBON DIOXIDE 25 mmol/L (22-30); CHLORIDE 104 mmol/L (98-107); CREATININE, serum 1.03 (0.66-1.25); GLUCOSE 91 mg/dL (74-106); POTASSIUM 3.9 mmol/L (3.4-5.0); SODIUM 139 mmol/L (137-145); TOTAL PROTEIN 7.8 gm/dL (6.4-8.2)
[2019-12-16 16:17] LABS: INR 1.2 (0.8-3.0); PROTHROMBIN TIME 13.1 SECONDS (9.7-12.8)
[2019-12-16 16:20] LABS: PARTIAL THROMBOPLASTIN TIME 37.5 SECONDS (26.0-37.0); TROPONIN-I < 0.012 ng/mL (0.000-0.035)
[2019-12-16 17:03] VITALS: BP 112/56; PULSE 46
== END 2019-12-16 17:05 | disposition home or self-care (01) ==
LOC: COL.ER 15:30
PROVIDERS: Family Medicine
DX: R06.00 Dyspnea, unspecified (principal); R51 Headache; E78.5 Hyperlipidemia, unspecified; Z95.5 Presence of coronary angioplasty implant and graft; Z79.82 Long term (current) use of aspirin
CPT/HCPCS: J7030

== ENCOUNTER 2020-01-17 13:53 | Outpatient (RCR) | payer OTHER | END 2020-03-05 | disposition home or self-care (01) | LOC: COL.CR | DX: I21.9 Acute myocardial infarction, unspecified (principal); Z95.5 Presence of coronary angioplasty implant and graft ==

== ENCOUNTER 2021-11-25 12:14 | Inpatient (IN) | payer MEDICARE, OTHER ==
[~2021-11-25] VITALS: Ht 182.9 cm; Wt 142.9 kg
[~2021-11-25 12:14] MED LIST changes: +BENICAR 20MG TA20 MG PO; +CEPHALEXIN500 M1 PO; +COLACE 100100 MG/CAP PO; +CORDARONE200 MG/TAB PO; +ELIQUIS 5MG PO; +IMDUR 30MG30 MG/TAB PO; +LASIX 20MG TABL20 MG PO; +LIPITOR 40MG TA40 MG PO; +LIPITOR20 MG PO; +LOVAZA1 GM PO; +NITROSTAT0.4 MG/TAB SL; +NORVASC 5MG5 MG/TAB PO; +OMEGA-3 1000 MG1 CAP PO; +PREDNISONE10 MG PO; +REQUIP 0.5MG0.5 MG PO; +SENNA-S 50 MG-81 TAB PO; +TOPROL XL 25MG25 MG PO; +TYLENOL 325MG325 MG PO; +ZOLOFT 50MG50 MG PO
[2021-11-25 13:04] LABS: BASO # 0.1 K/mm3 (0.0-0.2); BASO % 0.4 % (0.0-2.0); EOS # 0.3 K/mm3 (0.0-0.7); GRAN # 9.4 K/mm3 (1.4-6.5); GRAN % 76.5 % (42.2-75.2); HEMOGLOBIN 15.6 g/dl (13.5-18.0); LYMPH # 1.8 K/mm3 (1.2-3.4); LYMPH % 14.2 % (20.0-51.0); MEAN CELL VOLUME 90 fl (80.0-100.0); MEAN CORPUSCULAR HEMOGLOBIN 30 pg (27-31); MEAN CORPUSCULAR HGB CONC 33 g/dl (33.0-37.0); MEAN PLATELET VOLUME 10.1 fl (7.4-10.4); MONO # 0.8 K/mm3 (0.1-0.6); MONO % 6.4 % (1.7-9.3); PLATELET COUNT 261 K/mm3 (130-400); REDCELL DISTRIBUTION WIDTH-CV 13.2 % (11.5-14.5)
[2021-11-25 13:21] LABS: ALANINE AMINOTRANSFERASE 37 U/L (0-55); ALKALINE PHOSPHATASE 57 U/L (40-150); ANION GAP 11 mmol/L (7-16); AST,SGOT 19 U/L (5-34); BILIRUBIN,TOTAL 0.7 mg/dL (0.2-1.2); BLOOD UREA NITROGEN 15 mg/dL (8-26); CALCIUM 9.9 mg/dL (8.4-10.2); CARBON DIOXIDE 25 mmol/L (23-31); CHLORIDE 104 mmol/L (98-107); CREATININE, serum 1.37 mg/dL (0.72-1.25); GLUCOSE 121 mg/dL (70-99); SODIUM 140 mmol/L (136-145); TOTAL PROTEIN 6.6 gm/dL (6.2-8.1)
[2021-11-25 13:27] LABS: TROPONIN-I < 0.010 ng/mL (0.00-0.033)
[2021-11-25 16:35] VITALS: BP 145/58; PULSE 54; TEMP 98.3
[2021-11-25 20:44] VITALS: BP 129/61; PULSE 50; TEMP 98.2
[2021-11-26] VITALS (13 sets, daily range): BP systolic 115–165; BP diastolic 64–92; PULSE 45–70; TEMP 97.5–98.2
--- NOTE | 2021-11-26 06:30 | NUR ---
ASSESSMENT COMPLETE FOR THIS SHIFT. PT RESTING IN BED WATCHING TV. PT COMPLAINED OF A HEADACHE. PT GIVEN TYLENOL FOR HIS HEADACHE. TYLENOL WAS EFFECTIVE PER PT. PT DENIED PALPITATIONS, SOB, N,V,D OR DIZZINESS. PT NPO AT MIDNIGHT. PT WAS GIVEN 0700HRS MEDS WITH A SIP OF WATER. PT EXPRESSED NO OTHER NEEDS AT THIS TIME. CALL LIGHT WITHIN REACH.
[2021-11-26 06:38] LABS: ANION GAP 9 mmol/L (7-16); BLOOD UREA NITROGEN 15 mg/dL (8-26); CALCIUM 9.2 mg/dL (8.4-10.2); CARBON DIOXIDE 22 mmol/L (23-31); CHLORIDE 110 mmol/L (98-107); CREATININE, serum 1.09 mg/dL (0.72-1.25); GLUCOSE 109 mg/dL (70-99); MAGNESIUM 2.2 mg/dL (1.6-2.6); SODIUM 141 mmol/L (136-145)
[2021-11-26 06:48] LABS: TROPONIN-I < 0.010 ng/mL (0.00-0.033)
--- NOTE | 2021-11-26 09:18 | NUR ---
VICKIE met with the patient, his (Argenis, ph#[phone]), and daughter (Deedee) to discuss discharge plan. The patient lives in [place] with his . He reports independence with ADLs and does not have any DME. The patient's PCP is Dr. Dev Driver and he receives his medications from [facility]. The patient does not have a DPOA-HC, but he states that he already has the forms at home to fill out, when they decide to. The patient plans on returning home with his upon discharge. No additional needs at this time. *Discharge plan: home with *
--- NOTE | 2021-11-26 09:20 | NUR ---
PT SITTING UP IN BED ON ROOM AIR WITH FAMILY AT BEDSIDE. PT STATES THAT HE IS HAVING A HEADACHE BUT NO CHEST PAIN OR OTHER DISCOMFORT. TYLENOL WAS GIVEN FOR FOR PAIN. PT STATES HE IS WONDERING WHEN A [facility] DR WILL BE IN TO SEE HIM. PT STATES THAT NO ONE FROM [facility] HAS SEEN THE PT SINCE HE CAME TO THE HOSPITAL. MIGUEL, [facility] NURSE, WAS PAGED. NO RETURN CALL. INFORMED PT THAT I WILL KEEP AN EYE OUT FOR [facility] DOCTORS AND IF I SEEN ANY OR HEAR AN UPDATE THEN I WILL INFORM PT. PT VOICES UNDERSTANDING. FAMILY AND PT STATE NO OTHER NEEDS AT THIS TIME. PT IS NPO FOR POSSIBLE PACEMAKER PROCEDURE. CALL LIGHT IS WITHIN REACH.
--- NOTE | 2021-11-26 09:38 | NUR ---
Initial visit; Patient and his thanked Project Assistant for looking in on Kg and stated they would like a group prayer. Project Assistant prayed with them for wellness for Kg and God's hand to touch them and their family. They thanked Project Assistant for the 'wonderful' prayer.
--- NOTE | 2021-11-26 17:06 | NUR ---
PT OFF FLOOR FOR PACEMAKER PLACEMENT.
--- NOTE | 2021-11-26 17:47 | NUR ---
SEE MEREBALA FOR ALL MEDICATION ADMINISTRATION TIMES, INTRA AND POST SEDATION ASSESSMENTS
[2021-11-27 00:15] VITALS: BP 140/79; PULSE 69; TEMP 97.7
[2021-11-27 03:15] VITALS: BP 137/77; PULSE 69; TEMP 98.1
--- NOTE | 2021-11-27 06:05 | NUR ---
ASSESSMENT COMPLETE FOR THIS SHIFT. PT RESTING IN BED AFTER PACEMAKER PLACEMENT. PT COMPLAINED OF PAIN AT THE SITE OF THE PACEMAKER. SITES ASSESSED FOR ANY BLEEDING, SWELLING OR HEMATOMA. NONE FOUND. HOSPITALIST CALLED FOR PAIN MEDICATION. MORPHINE AND NORCO ORDERED AND GIVEN. PT FELT PAIN MEDICATIONS HELPED. PT ALSO COMPLAINED OF A HEADACHE THIS MORNING. PT REQUESTED AND GIVEN NORCO FOR HEADACHE AND SITE PAIN. PT FELT MUCH BETTER. SURGICAL SITES CDI, WITH NO SIGNS OF BLEEDING, SWELLING OR HEMATOMA. VSS. PT EXPRESSED NO OTHER NEEDS AT THIS TIME. CALL LIGHT WITHIN [facility].
[2021-11-27 06:46] LABS: BASO % 0.3 % (0.0-2.0); EOS # 0.4 K/mm3 (0.0-0.7); EOS % 3.4 % (0.0-4.0); GRAN # 7.9 K/mm3 (1.4-6.5); GRAN % 73.4 % (42.2-75.2); HEMATOCRIT 47.1 % (42.0-52.0); HEMOGLOBIN 15.7 g/dl (13.5-18.0); LYMPH # 1.6 K/mm3 (1.2-3.4); LYMPH % 15.3 % (20.0-51.0); MEAN CELL VOLUME 89 fl (80.0-100.0); MEAN CORPUSCULAR HEMOGLOBIN 30 pg (27-31); MEAN CORPUSCULAR HGB CONC 33 g/dl (33.0-37.0); MEAN PLATELET VOLUME 10.1 fl (7.4-10.4); MONO # 0.8 K/mm3 (0.1-0.6); MONO % 7.2 % (1.7-9.3); PLATELET COUNT 233 K/mm3 (130-400); RED BLOOD COUNT 5.31 M/mm3 (4.20-5.60); REDCELL DISTRIBUTION WIDTH-CV 12.9 % (11.5-14.5)
[2021-11-27 07:03] LABS: CALCIUM 8.8 mg/dL (8.4-10.2); CREATININE, serum 1.07 mg/dL (0.72-1.25); MAGNESIUM 2.1 mg/dL (1.6-2.6); POTASSIUM 4.1 mmol/L (3.5-4.5)
[2021-11-27 07:52] VITALS: BP 125/69; PULSE 70; TEMP 98
--- NOTE | 2021-11-27 08:40 | NUR ---
PT SITTING UP IN BED ON ROOM AIR WITH AT BEDSIDE. PT STATES THAT HE IS NOT HAVING ANY PAIN. PT STATES THAT LAST NIGHT HE WAS HAVING SOME ABD PAIN AND SOME NAUSEA BUT THAT HAS WENT AWAY. LEFT CHEST SITE DRESSING IS CLEAN, DRY AND INTACT. SECOND SITE ON MEDIAL CHEST IS DRY AND INTACT WELL. PT DOES HAVE ARM SLING ON LEFT ARM. PT STATES "I FEEL GOOD, I AM JUST A LITTLE TIRED." CALL LIGHT IS WITHIN REACH.
[2021-11-27] MEDS ORDERED: CEPHALEXIN500 M1 PO (09:18)
[2021-11-27] MEDS ORDERED: CORDARONE200 MG/TAB PO (09:20)
[2021-11-27 11:46] VITALS: BP 132/70; PULSE 72; TEMP 97.9
== END 2021-11-27 13:20 | disposition home or self-care (01) | DRG 243 ==
LOC: COL.ER 12:14 → MEDICAL 15:19
PROVIDERS: Physician Assistant; Student in an Organized Health Care Education/Training Program; ADMIT Internal Medicine
PROC: 0JH606Z Insertion of Pacemaker, Dual Chamber into Chest Subcutaneous Tissue and Fascia, Open Approach (ICD-10-PCS; principal; 2021-11-26)
PROC: 02H63JZ Insertion of Pacemaker Lead into Right Atrium, Percutaneous Approach (ICD-10-PCS; 2021-11-26)
PROC: 02HK3JZ Insertion of Pacemaker Lead into Right Ventricle, Percutaneous Approach (ICD-10-PCS; 2021-11-26)
PROC: 0JPT32Z Removal of Monitoring Device from Trunk Subcutaneous Tissue and Fascia, Percutaneous Approach (ICD-10-PCS; 2021-11-26)
DX: I49.5 Sick sinus syndrome (principal); I50.22 Chronic systolic (congestive) heart failure; N17.9 Acute kidney failure, unspecified; E78.5 Hyperlipidemia, unspecified; I25.10 Atherosclerotic heart disease of native coronary artery without angina pectoris; K21.9 Gastro-esophageal reflux disease without esophagitis; I11.0 Hypertensive heart disease with heart failure; G25.81 Restless legs syndrome; F41.9 Anxiety disorder, unspecified; K59.00 Constipation, unspecified; I48.0 Paroxysmal atrial fibrillation; I25.5 Ischemic cardiomyopathy; I25.2 Old myocardial infarction; Z95.5 Presence of coronary angioplasty implant and graft; Z79.82 Long term (current) use of aspirin; Z79.52 Long term (current) use of systemic steroids
CPT/HCPCS: 99223-AI; 99231-AI; 99239; C1785; C1894; C1898; J0690; J2250; J2270; J3010; J7030; Q9967

== ENCOUNTER 2021-12-04 21:29 | Emergency (ER) | payer MEDICARE, OTHER ==
[~2021-12-04] VITALS: Ht 182.9 cm; Wt 87.7 kg
[2021-12-04 21:38] VITALS: TEMP 98
[2021-12-04 22:33] LABS: BASO # 0.1 K/mm3 (0.0-0.2); BASO % 1.2 % (0.0-2.0); EOS # 0.3 K/mm3 (0.0-0.7); EOS % 3.4 % (0.0-4.0); GRAN # 5.2 K/mm3 (1.4-6.5); GRAN % 64.9 % (42.2-75.2); HEMATOCRIT 44.1 % (42.0-52.0); HEMOGLOBIN 14.6 g/dl (13.5-18.0); LYMPH # 1.8 K/mm3 (1.2-3.4); LYMPH % 22.2 % (20.0-51.0); MEAN CELL VOLUME 89 fl (80.0-100.0); MEAN CORPUSCULAR HEMOGLOBIN 30 pg (27-31); MEAN CORPUSCULAR HGB CONC 33 g/dl (33.0-37.0); MEAN PLATELET VOLUME 10.4 fl (7.4-10.4); MONO # 0.6 K/mm3 (0.1-0.6); MONO % 7.9 % (1.7-9.3); PLATELET COUNT 174 K/mm3 (130-400); RED BLOOD COUNT 4.94 M/mm3 (4.20-5.60); REDCELL DISTRIBUTION WIDTH-CV 12.8 % (11.5-14.5)
[2021-12-04 22:49] LABS: ALBUMIN 3.9 gm/dL (3.4-4.8); BILIRUBIN,TOTAL 0.3 mg/dL (0.2-1.2); CALCIUM 10.2 mg/dL (8.4-10.2); CREATININE, serum 1.03 mg/dL (0.72-1.25); POTASSIUM 4.1 mmol/L (3.5-4.5); TOTAL PROTEIN 6.6 gm/dL (6.2-8.1)
[2021-12-04] MEDS ORDERED: CLEOCIN HC150 MG/CAP PO (23:01)
[2021-12-04 23:17] VITALS: BP 131/84; PULSE 72
== END 2021-12-04 23:17 | disposition home or self-care (01) ==
LOC: COL.ER 21:29
PROVIDERS: Emergency Medicine
DX: L03.313 Cellulitis of chest wall (principal); Z95.0 Presence of cardiac pacemaker; Z88.1 Allergy status to other antibiotic agents; Z28.310 Unvaccinated for COVID-19

== ENCOUNTER 2022-03-28 06:28 | Inpatient (IN) | payer MEDICARE, OTHER ==
[~2022-03-28] VITALS: Ht 182.9 cm; Wt 91.0 kg
[~2022-03-28 06:28] MED LIST changes: +CLEOCIN HC150 MG/CAP PO
[2022-03-28 09:00] VITALS: BP 130/74; PULSE 70; TEMP 98.3
--- NOTE | 2022-03-28 09:02 | NUR ---
Patient arrived to the unit walking with his , alert and oriented x 4, denies chest pain, or other symptom. States fatigue. Assessment intake done.
[2022-03-28] MEDS ORDERED: COUMADIN 5MG5 MG/TAB PO (09:07)
[2022-03-28 10:01] LABS: BASO # 0.1 K/mm3 (0.0-0.2); BASO % 1.1 % (0.0-2.0); EOS # 0.2 K/mm3 (0.0-0.7); EOS % 3.2 % (0.0-4.0); GRAN # 4.1 K/mm3 (1.4-6.5); GRAN % 65.4 % (42.2-75.2); HEMATOCRIT 39.4 % (42.0-52.0); HEMOGLOBIN 13.7 g/dl (13.5-18.0); LYMPH # 1.2 K/mm3 (1.2-3.4); LYMPH % 19.2 % (20.0-51.0); MEAN CELL VOLUME 91 fl (80.0-100.0); MEAN CORPUSCULAR HEMOGLOBIN 32 pg (27-31); MEAN CORPUSCULAR HGB CONC 35 g/dl (33.0-37.0); MEAN PLATELET VOLUME 10.2 fl (7.4-10.4); MONO # 0.7 K/mm3 (0.1-0.6); MONO % 10.5 % (1.7-9.3); PLATELET COUNT 154 K/mm3 (130-400); RED BLOOD COUNT 4.34 M/mm3 (4.20-5.60); REDCELL DISTRIBUTION WIDTH-CV 14.5 % (11.5-14.5)
[2022-03-28 10:05] LABS: ALBUMIN 3.8 gm/dL (3.4-4.8); BILIRUBIN,TOTAL 0.7 mg/dL (0.2-1.2); CALCIUM 9.7 mg/dL (8.4-10.2); CREATININE, serum 1.18 mg/dL (0.72-1.25); MAGNESIUM 2.2 mg/dL (1.6-2.6); POTASSIUM 4.9 mmol/L (3.5-4.5); TOTAL PROTEIN 6.4 gm/dL (6.2-8.1)
[2022-03-28 11:42] VITALS: BP 134/73; PULSE 72; TEMP 97.9
[2022-03-28 15:23] VITALS: BP 101/59; PULSE 69; TEMP 98.2
--- NOTE | 2022-03-28 18:43 | NUR ---
Patient has been stable along the day, denies any ches painn or discomfort. Telemetry in place. HR WNL. Eating well. Independent. at the bedside. Report given to night RN.
[2022-03-28 19:51] VITALS: BP 111/59; PULSE 74; TEMP 98.6
[2022-03-29] VITALS (7 sets, daily range): BP systolic 112–134; BP diastolic 60–72; PULSE 71–79; TEMP 98.2–98.7
[2022-03-29 07:12] LABS: BASO # 0.1 K/mm3 (0.0-0.2); BASO % 0.8 % (0.0-2.0); EOS # 0.2 K/mm3 (0.0-0.7); EOS % 2.7 % (0.0-4.0); GRAN # 4.4 K/mm3 (1.4-6.5); GRAN % 73.1 % (42.2-75.2); HEMATOCRIT 42.1 % (42.0-52.0); HEMOGLOBIN 13.9 g/dl (13.5-18.0); LYMPH % 15.9 % (20.0-51.0); MEAN CELL VOLUME 94 fl (80.0-100.0); MEAN CORPUSCULAR HEMOGLOBIN 31 pg (27-31); MEAN CORPUSCULAR HGB CONC 33 g/dl (33.0-37.0); MEAN PLATELET VOLUME 10.5 fl (7.4-10.4); MONO # 0.4 K/mm3 (0.1-0.6); PLATELET COUNT 146 K/mm3 (130-400); RED BLOOD COUNT 4.47 M/mm3 (4.20-5.60); REDCELL DISTRIBUTION WIDTH-CV 14.6 % (11.5-14.5)
[2022-03-29 07:13] LABS: INR 2.6 (0.8-3.0); PROTHROMBIN TIME 30.4 SECONDS (9.7-12.8)
[2022-03-29 07:24] LABS: CALCIUM 9.4 mg/dL (8.4-10.2); CREATININE, serum 1.22 mg/dL (0.72-1.25); MAGNESIUM 2.2 mg/dL (1.6-2.6)
--- NOTE | 2022-03-29 08:28 | NUR ---
PT ALERT AND ORIENTEDX4 UPON ASSESSMENT. IN BED AND NO COMPLAINTS OF PAIN. PT STATES SOME POSTNASAL DRAINAGE THROUGH NIGHT.
[2022-03-29] MEDS ORDERED: COUMADIN 22.5 MG/TAB PO (11:19)
--- NOTE | 2022-03-29 12:47 | NUR ---
Manager Of Training And Development met with patient to discuss discharge planning. Patient lives in [place] with his , Argenis (ph#[phone]) who is at bedside. Patient sees Dr. Driver for primary care and obtains medications from [facility] with no difficulties. Patient does not use any DME and is independent with ADLS. Patient does not have DPOA-HC but advised he obtained a form last time he was at this hospital and plans to fill it out with his . Katty plans to return home at time of discharge. Discharge Plan: Home
[2022-03-30 04:07] VITALS: BP 135/68; PULSE 73; TEMP 98.7
[2022-03-30 06:37] LABS: BASO % 0.7 % (0.0-2.0); EOS # 0.2 K/mm3 (0.0-0.7); EOS % 3.6 % (0.0-4.0); GRAN # 3.6 K/mm3 (1.4-6.5); GRAN % 65.3 % (42.2-75.2); HEMATOCRIT 42.3 % (42.0-52.0); HEMOGLOBIN 14.2 g/dl (13.5-18.0); LYMPH # 1.3 K/mm3 (1.2-3.4); LYMPH % 22.9 % (20.0-51.0); MEAN CELL VOLUME 94 fl (80.0-100.0); MEAN CORPUSCULAR HEMOGLOBIN 31 pg (27-31); MEAN CORPUSCULAR HGB CONC 34 g/dl (33.0-37.0); MEAN PLATELET VOLUME 10.7 fl (7.4-10.4); MONO # 0.4 K/mm3 (0.1-0.6); MONO % 6.8 % (1.7-9.3); PLATELET COUNT 143 K/mm3 (130-400); RED BLOOD COUNT 4.52 M/mm3 (4.20-5.60); REDCELL DISTRIBUTION WIDTH-CV 14.3 % (11.5-14.5)
[2022-03-30 06:40] LABS: INR 1.7 (0.8-3.0); PROTHROMBIN TIME 19.8 SECONDS (9.7-12.8)
[2022-03-30 06:51] LABS: CALCIUM 9.3 mg/dL (8.4-10.2); CREATININE, serum 1.05 mg/dL (0.72-1.25); MAGNESIUM 2.2 mg/dL (1.6-2.6); POTASSIUM 4.4 mmol/L (3.5-4.5)
[2022-03-30 07:34] VITALS: BP 144/83; PULSE 81; TEMP 98.3
--- NOTE | 2022-03-30 08:00 | NUR ---
Pt awake in bed. Morning medications administered per eMAR. Shift assessment completed. Pt mentioned coughing up thick sputum this morning. Fine crackles noted during lung auscultation; O2 within normal range of 92%. INT on R hand infiltrated. JAILYN Villagran made aware. Plan to D/C INT upon receiving discharge orders as pt is expected to go home today. No further complaints or requests at this time. Call light within reach.
[2022-03-30] MEDS ORDERED: MUCUS RELIEF400 M1 PO (10:29)
[2022-03-30] MEDS ORDERED: TESSALON P100 MG/CAP PO (10:29)
[2022-03-30] MEDS ORDERED: BETAPACE 120MG120 MG PO (10:30)
--- NOTE | 2022-03-30 11:36 | NUR ---
Paulette: [facility] Situation: surface miner stopped by room on rounds Background: Pt was resting and content Assessment: Pt has no needs right now. Pt appreciated the visit Recommendation: surface miner will follow up as needed
--- NOTE | 2022-03-30 12:10 | NUR ---
Telemetry discontinued by HADLEY Schultz. INT on R hand discontinued by this MARKET PRESIDENT. Discharge instructions were given. Spouse at bedside. All questions answered. Pt left with all personal belongings. Pt escorted out of facility by spouse.
== END 2022-03-30 12:10 | disposition home or self-care (01) | DRG 310 ==
LOC: MEDICAL 06:28
PROVIDERS: ADMIT Internal Medicine Cardiovascular Disease
DX: I48.0 Paroxysmal atrial fibrillation (principal); I47.1 Supraventricular tachycardia; I25.2 Old myocardial infarction; Z95.0 Presence of cardiac pacemaker; Z88.1 Allergy status to other antibiotic agents; Z88.2 Allergy status to sulfonamides; Z88.8 Allergy status to other drugs, medicaments and biological substances; Z23 Encounter for immunization